=== PATIENT | female | born 1985 | race Asian ===

== ENCOUNTER 2016-08-12 03:27 | Emergency (ER) | payer BC ==
[~2016-08-12] VITALS: Ht 154.9 cm; Wt 45.3 kg
[~2016-08-12 03:27] MED LIST: CIPRO500 MG PO; EFFEXOR XR150 MG PO; FLEXERIL10 MG PO; FLEXERIL5 MG PO; KEFLEX500 MG PO; NAPROSYN500 MG PO; NAPROXEN500 MG PO; NORCO 5/3251 TABLET PO; POTASSIUM CHLO20 MEQ PO; POWDERLAX238 GM PO; REGLAN10 MG PO; SEROQUEL100 MG PO; SEROQUEL300 MG PO; TRAMADOL HCL50 MG PO; VICODIN 5-3001 EACH PO; ZANTAC150 MG PO; ZOFRAN ODT4 MG PO; ZOFRAN4 MG PO; ZYPREXA20 MG PO
[2016-08-12 04:24] LABS: BASOPHIL COUNT 0.1 K/uL (0-0.1); EOSINOPHIL (%) 0.6 % (0-5); EOSINOPHIL COUNT 0.1 K/uL (0-0.3); HEMATOCRIT 54.1 % (36.0-46.0); IMMATURE GRANULOCYTE (%) 0.4 % (0.0-0.7); IMMATURE GRANULOCYTE COUNT 0.1 K/uL; INSTRUMENT ABS NEUTROPHIL CT 15.9 K/uL; LYMPHOCYTE COUNT 1.1 K/uL (1.0-2.8); MCH 31.6 PG (29.0-34.0); MCHC 34.4 G/DL (30.0-36.0); MEAN PLAT.VOLUME 9.6 uM^3 (9.5-12.4); MONOCYTE COUNT 0.5 K/uL (0-0.8); NEUTROPHIL (%) 89.5 % (45-76); NEUTROPHIL COUNT 15.9 K/uL (1.8-6.4); PLATELET COUNT 352 K/uL (156-360); RBC DIS.WIDTH-SD 40.8 % (39-53); RED BLOOD COUNT 5.88 M/uL (3.80-5.20)
[2016-08-12 04:27] LABS: WHITE BLOOD COUNT 17.8 K/uL (4.1-10.2)
[2016-08-12 04:37] LABS: CHLORIDE 105 mEq/L (99-109); POTASSIUM 4.3 mEq/L (3.7-5.4); SODIUM 138 mEq/L (136-147)
[2016-08-12 04:39] LABS: GLUCOSE 189 mg/dL (70-99)
[2016-08-12 04:41] LABS: ANION GAP 18 MEQ/L (2-14); TOTAL BILIRUBIN 0.6 mg/dL (0.0-1.0)
[2016-08-12 04:43] LABS: ALKALINE PHOSPHATASE 83 IU/L (3-129); GFR ESTIMATE (CALCULATED) > 59 mL/min/
[2016-08-12 04:44] LABS: UREA NITROGEN (BUN) 18 mg/dL (9-23)
[2016-08-12 04:46] LABS: LIPASE 30 U/L (1.0-51.0)
[2016-08-12 04:52] LABS: QUANTITATIVE HCG < 4.0 MIU/ML
[2016-08-12 06:06] LABS: ADD MIUA? YES; BILIRUBIN SMALL; BLOOD SMALL; COLOR AMBER ((YELLOW)); GLUCOSE (STRIP) NEGATIVE; KETONES 5; LEUKOCYTES NEGATIVE; NITRITE NEGATIVE; PROTEIN (STRIP) 100
[2016-08-12 06:41] LABS: BACTERIA RARE /HPF; EPITHELIAL CELLS 1+ /HPF; MUCUS 4+ /LPF; RED BLOOD CELLS 0-5 /HPF (0-5); UCUL ADDED? NO
[2016-08-12] MEDS ORDERED: ZOFRAN ODT4 MG PO (06:46)
[2016-08-12 07:13] VITALS: BP 119/62
== END 2016-08-12 07:14 | disposition home or self-care (01) ==
LOC: EME 03:27
PROVIDERS: Emergency Medicine
DX: R11.10 Vomiting, unspecified (principal); R19.7 Diarrhea, unspecified; E86.0 Dehydration; D72.829 Elevated white blood cell count, unspecified; F17.200 Nicotine dependence, unspecified, uncomplicated
CPT/HCPCS: 80053; 81003; 83690; 84702; 85025; 99281; 99284; J2405; J2765; J7030

== ENCOUNTER 2016-09-29 19:20 | Emergency (ER) | payer BC, OTHER ==
[~2016-09-29] VITALS: Ht 157.5 cm; Wt 45.0 kg
[2016-09-29 22:33] LABS: HEMATOCRIT 42.6 % (36.0-46.0); MCH 31.6 PG (29.0-34.0); MCHC 33.8 G/DL (30.0-36.0); MCV 93.6 FL (83-99); MEAN PLAT.VOLUME 9.2 uM^3 (9.5-12.4); PLATELET COUNT 270 K/uL (156-360); RBC DIS.WIDTH-CV 12.4 % (11.8-14.6); RED BLOOD COUNT 4.55 M/uL (3.80-5.20); WHITE BLOOD COUNT 15.6 K/uL (4.1-10.2)
[2016-09-29 22:42] LABS: CHLORIDE 104 mEq/L (99-109); POTASSIUM 3.6 mEq/L (3.7-5.4); SODIUM 138 mEq/L (136-147)
[2016-09-29 22:43] LABS: GLUCOSE 81 mg/dL (70-99)
[2016-09-29 22:45] LABS: ANION GAP 10 MEQ/L (2-14)
[2016-09-29 22:47] LABS: GFR ESTIMATE (CALCULATED) > 59 mL/min/
[2016-09-29 22:48] LABS: UREA NITROGEN (BUN) 11 mg/dL (9-23)
[2016-09-29] MEDS ORDERED: CLINDAMYCIN HC300 MG PO (23:59)
[2016-09-29] MEDS ORDERED: PERCOCET 5/31 TABLET PO (23:59)
[2016-09-30 00:13] VITALS: BP 104/67
== END 2016-09-30 00:24 | disposition home or self-care (01) ==
LOC: EME 19:20
PROVIDERS: Emergency Medicine
DX: K04.7 Periapical abscess without sinus (principal); F17.200 Nicotine dependence, unspecified, uncomplicated
CPT/HCPCS: 70487; 70491; 80048; 85027; 99281; 99284; J7030